=== PATIENT | female | born 1970 | race Caucasian/White ===

== ENCOUNTER 2023-02-24 09:24 | Emergency (ER) | payer OTHER ==
[2023-02-24] MEDS ORDERED: Acetaminophen 500 MG Tab PO ONE (09:53)
== END 2023-02-24 11:37 | disposition home or self-care (01) ==
LOC: JP.ED 09:24
DX: S42.224A 2-part nondisplaced fracture of surgical neck of right humerus, initial encounter for closed fracture (principal); W18.40XA Slipping, tripping and stumbling without falling, unspecified, initial encounter
CPT/HCPCS: 73060; 99283; A9270